=== PATIENT | female | born 1945 | race Native Hawaiian/Other Pacific Islander ===

== ENCOUNTER 2022-11-26 12:55 | Emergency (ER) | payer OTHER ==
[~2022-11-26] VITALS: Ht 165.1 cm; Wt 100.2 kg
[2022-11-26 13:24] LABS: PLATELET COUNT 286 K/uL (152-353)
[2022-11-26 13:32] LABS: POTASSIUM 3.8 mmol/L (3.6-5.2)
[2022-11-26 14:06] LABS: PARTIAL THROMBOPLASTIN TIME 24.3 SECONDS (24.5-33.6)
[2022-11-26 19:01] VITALS: BP 170/98
== END 2022-11-26 19:01 | disposition home or self-care (01) ==
LOC: ED 12:55
PROVIDERS: Emergency Medicine
DX: I82.503 Chronic embolism and thrombosis of unspecified deep veins of lower extremity, bilateral (principal)
CPT/HCPCS: 80053; 83690; 84484; 85027; 85379; 85610; 85730; 93005; 96372; 96374; 96375; 99283; 99284; J1650; J2270; J2405; Q9963